=== PATIENT | female | born 1935 | race Caucasian/White ===

== ENCOUNTER 2019-09-18 19:23 | Observation (INO) | payer MEDICARE, BC ==
[2019-09-18] MEDS ORDERED: SODIUM CHLORIDE 0.9% 500 ML 500 ML IV STA (19:43)
[2019-09-18] MEDS ORDERED: ONDANSETRON 4 MG/2 ML VIAL IVP STA (19:43)
[2019-09-18 20:01] LABS: Basophils % (A) 0 %; Eosinophils # (A) 0.1 k/uL (0-0.7); Eosinophils % (A) 1 %; HCT 35.6 % (34.0-46.0); HGB 12.1 gm/dL (11.4-16.0); Lymphocytes # (A) 0.3 k/uL (1.0-4.8); Lymphocytes % (A) 2 %; MCH 32.6 pg (25.0-35.0); MCV 95.7 fL (80.0-100.0); Mean Platelet Volume 6.3; Monocytes # (A) 0.3 k/uL (0-1.0); Monocytes % (A) 2 %; Neutrophils # (A) 13.6 k/uL (1.3-7.7); Neutrophils % (A) 95 %; Platelet Count 171 k/uL (150-450); RBC 3.72 m/uL (3.80-5.40); RDW 12.6 % (11.5-15.5); WBC 14.4 k/uL (3.8-10.6)
[2019-09-18 20:12] LABS: Albumin 3.4 g/dL (3.5-5.0); Calcium 8.6 mg/dL (8.4-10.2); Total Bilirubin 0.9 mg/dL (0.2-1.3); Total Protein 6.1 g/dL (6.3-8.2)
[2019-09-18 20:16] LABS: Potassium 4.2 mmol/L (3.5-5.1)
--- NOTE | 2019-09-18 21:32 | CT ---
EXAMINATION TYPE: CT abdomen pelvis wo con DATE OF EXAM: 09/18/2019 COMPARISON: None HISTORY: diarrhea, abdominal pain and rectal bleeding CT DLP: 410 mGycm Automated exposure control for dose reduction was used. TECHNIQUE: Helical acquisition of images was performed from the lung bases through the pelvis. FINDINGS: Within the limitations of noncontrast CT the following observations are made. LUNG BASES: No acute process. Prominent left and right coronary calcifications are noted. LIVER/GB: No significant abnormality is appreciated. PANCREAS: No significant abnormality is seen. SPLEEN: No significant abnormality is seen. ADRENALS: No significant abnormality is seen. KIDNEYS: No significant abnormality is seen. FREE AIR: No free air is visualized RETROPERITONEAL ADENOPATHY: None visualized REPRODUCTIVE ORGANS: No significant abnormality is seen URINARY BLADDER: No significant abnormality is seen. PELVIC ADENOPATHY: None visualized. OSSEOUS STRUCTURES: No significant abnormality is seen. BOWEL: No significant abnormality is seen. Specifically, no finding to correlate with the patient's diarrhea, pain and rectal bleeding. IMPRESSION: NO ACUTE PROCESS.
--- NOTE | 2019-09-18 22:00 | ED ---
General Adult HPI <Charles Zepeda - Last Filed: 09/18/19 22:39> - General Source: EMS Mode of arrival: EMS Limitations: no limitations <Juhi Coughlin - Last Filed: 09/22/19 15:59> - General Chief complaint: Nausea/Vomiting/Diarrhea Stated complaint: Diarrhea Time Seen by Provider: 09/18/19 19:30 - History of Present Illness Initial comments: The patient is an 84-year-old female past history of C. diff approximate 5 years ago presents emergency room with diarrhea. She states around 1 PM today she began having multiple episodes of diarrhea. States that it was yellow in color and she did notice small amount of blood during her last episode. States she has been having lower abdominal cramping. No fevers or chills. She did have slight nausea without vomiting. Denies any recent antibiotic use or travel. No recent medication changes. Denies a history of GI bleeding. He is on Plavix. States that after several episodes she began having presyncopal sensations. She is having difficulty in regulating. She felt as if she was went to pass out. She then called EMS for transfer. Upon arrival the patient's vital signs are stable. Denies chest pain or shortness of breath. No changes in her bladder habits. There are no other alleviating, precipitating or modifying factors (Juhi Coughlin) - Related Data Home Medications Medication Instructions Recorded Confirmed Aspirin 81 mg PO DAILY 09/05/15 09/18/19 Atorvastatin [Lipitor] 20 mg PO DAILY 09/05/15 09/18/19 Carvedilol [Coreg] 3.125 mg PO BID 09/05/15 09/18/19 Clopidogrel [Plavix] 75 mg PO DAILY 09/05/15 09/18/19 Ezetimibe [Zetia] 10 mg PO DAILY 09/05/15 09/18/19 Gabapentin Unknown Dose 1 tab PO ONCE PRN 09/18/19 09/18/19 Levothyroxine Sodium [Synthroid] 150 mcg PO DAILY 09/18/19 09/18/19 Allergies Allergy/AdvReac Type Severity Reaction Status Date / Time Penicillins Allergy Severe Anaphylaxis Verified 09/18/19 21:51 Iodinated Contrast Media Allergy Anaphylaxis Verified 09/18/19 21:51 Sulfa (Sulfonamide Allergy Anaphylaxis Verified 09/18/19 21:51 Antibiotics) heart cath dye Allergy Anaphylaxis Uncoded 09/18/19 19:31 Review of Systems ROS Other: All systems not noted in ROS Statement are negative. <Charles Zepeda - Last Filed: 09/18/19 22:39> ROS Other: All systems not noted in ROS Statement are negative. <Juhi Coughlin - Last Filed: 09/22/19 15:59> ROS Statement: Those systems with pertinent positive or pertinent negative responses have been documented in the HPI. 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, cardiac stent 2012, x-smoker, cholecystitis, diverticulitis, recent flare August 29, pt on 7 more doses of po cipro History of Any Multi-Drug Resistant Organisms: C-DIFF Date of last positivie culture/infection: 01/23/2015 MDRO Source:: stool Past Surgical History: Cholecystectomy, Heart Catheterization With Stent, Hysterectomy Additional Past Surgical History / Comment(s): surgery for perforated ulcer 10 yrs ago Past Anesthesia/Blood Transfusion Reactions: No Reported Reaction Past Psychological History: No Psychological Hx Reported Smoking Status: Former smoker Past Alcohol Use History: None Reported Past Drug Use History: None Reported - Past Family History Mother Family Medical History: Chest Pain / Angina, Myocardial Infarction ([place]), Thyroid Disorder Father Family Medical History: Cancer (Lung cancer), Thyroid Disorder Brother(s) Family Medical History: Thyroid Disorder Daughter(s) Family Medical History: Cancer (Uterine cancer), Thyroid Disorder Son(s) Family Medical History: No Reported History <Juhi Coughlin - Last Filed: 09/22/19 15:59> General Exam Limitations: no limitations General appearance: alert, in no apparent distress Head exam: Present: atraumatic, normocephalic, normal inspection Eye exam: Present: normal appearance, PERRL, EOMI. Absent: scleral icterus, conjunctival injection, periorbital swelling ENT exam: Present: normal exam, mucous membranes moist Neck exam: Present: normal inspection. Absent: tenderness, meningismus, lymphadenopathy Respiratory exam: Present: normal lung sounds bilaterally. Absent: respiratory distress, wheezes, rales, rhonchi, stridor Cardiovascular Exam: Present: regular rate, normal rhythm, normal heart sounds. Absent: systolic murmur, diastolic murmur, rubs, gallop, clicks GI/Abdominal exam: Present: soft, normal bowel sounds. Absent: distended, tenderness, guarding, rebound, rigid Rectal exam: Present: normal rectal tone. Absent: black stool, bloody stool, mass, tenderness Extremities exam: Present: normal inspection, full ROM, normal capillary refill. Absent: tenderness, pedal edema, joint swelling, calf tenderness Back exam: Present: normal inspection Neurological exam: Present: alert, oriented X3, CN II-XII intact Psychiatric exam: Present: normal affect, normal mood Skin exam: Present: warm, dry, intact, normal color. Absent: rash <Juhi Coughlin - Last Filed: 09/22/19 15:59> Course <Charles Zepeda - Last Filed: 09/18/19 22:39> Vital Signs 09/18/19 09/18/19 19:29 23:03 Temperature 98.7 F 97.6 F Pulse Rate 88 87 Respiratory 18 16 Rate Blood Pressure 104/63 112/61 O2 Sat by Pulse 95 95 Oximetry - Reevaluation(s) Reevaluation #1: 09/18/19 22:39 [address] was asked [address] an order for contact precautions for this patient. (Charles Zepeda) Medical Decision Making - Lab Data Result diagrams: 09/18/19 19:35 09/18/19 19:35 <Charles Zepeda - Last Filed: 09/18/19 22:39> - Lab Data Result diagrams: 09/19/19 08:13 09/19/19 08:13 <Juhi Coughlin - Last Filed: 09/22/19 15:59> - Medical Decision Making Upon arrival the patient was placed in room 25. Thorough history and physical exam was performed. I recommended laboratory studies and a CT the patient's abdomen and pelvis. 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 CBC shows white blood cell count of 14.4. Fecal occult was performed and is positive. No gross blood was seen during my exam. The patient does have 3 episodes of bowel, yellow watery stool. Because of this I did recommend treatment for C. diff. A sample was sent to the lab. The patient was started on the 100 mL of normal saline per hour. She was given a 500 cc bolus. I did start Vanco 250 mg every 6 hours. I talked to Dr. Powell who accepted admission. The patient agreed to the treatment plan and was admitted to the floor (MadysonJuhi Carol) - Lab Data Lab Results 09/18/19 09/18/19 09/18/19 Range/Units 19:35 19:35 19:35 WBC 14.4 H (3.8-10.6) k/uL RBC 3.72 L (3.80-5.40) m/uL Hgb 12.1 (11.4-16.0) gm/dL Hct 35.6 (34.0-46.0) % MCV 95.7 (80.0-100.0) fL MCH 32.6 (25.0-35.0) pg MCHC 34.0 (31.0-37.0) g/dL RDW 12.6 (11.5-15.5) % Plt Count 171 (150-450) k/uL Neutrophils % 95 % Lymphocytes % 2 % Monocytes % 2 % Eosinophils % 1 % Basophils % 0 % Neutrophils # 13.6 H (1.3-7.7) k/uL Lymphocytes # 0.3 L (1.0-4.8) k/uL Monocytes # 0.3 (0-1.0) k/uL Eosinophils # 0.1 (0-0.7) k/uL Basophils # 0.0 (0-0.2) k/uL Sodium 137 (137-145) mmol/L Potassium 4.2 (3.5-5.1) mmol/L Chloride 110 H (98-107) mmol/L Carbon Dioxide 19 L (22-30) mmol/L Anion Gap 8 mmol/L BUN 24 H (7-17) mg/dL Creatinine 0.87 (0.52-1.04) mg/dL Est GFR (CKD-EPI)AfAm 71 (>60 ml/min/1.73 sqM) Est GFR (CKD-EPI)NonAf 62 (>60 ml/min/1.73 sqM) Glucose 117 H (74-99) mg/dL Plasma Lactic Acid Naresh 1.0 (0.7-2.0) mmol/L Calcium 8.6 (8.4-10.2) mg/dL Total Bilirubin 0.9 (0.2-1.3) mg/dL AST 32 (14-36) U/L ALT 24 (9-52) U/L Alkaline Phosphatase 76 (38-126) U/L Total Protein 6.1 L (6.3-8.2) g/dL Albumin 3.4 L (3.5-5.0) g/dL Lipase 49 (23-300) U/L Stool Occult Blood (Negative) 09/18/19 Range/Units 20:22 WBC (3.8-10.6) k/uL RBC (3.80-5.40) m/uL Hgb (11.4-16.0) gm/dL Hct (34.0-46.0) % MCV (80.0-100.0) fL MCH (25.0-35.0) pg MCHC (31.0-37.0) g/dL RDW (11.5-15.5) % Plt Count (150-450) k/uL Neutrophils % % Lymphocytes % % Monocytes % % Eosinophils % % Basophils % % Neutrophils # (1.3-7.7) k/uL Lymphocytes # (1.0-4.8) k/uL Monocytes # (0-1.0) k/uL Eosinophils # (0-0.7) k/uL Basophils # (0-0.2) k/uL Sodium (137-145) mmol/L Potassium (3.5-5.1) mmol/L Chloride (98-107) mmol/L Carbon Dioxide (22-30) mmol/L Anion Gap mmol/L BUN (7-17) mg/dL Creatinine (0.52-1.04) mg/dL Est GFR (CKD-EPI)AfAm (>60 ml/min/1.73 sqM) Est GFR (CKD-EPI)NonAf (>60 ml/min/1.73 sqM) Glucose (74-99) mg/dL Plasma Lactic Acid Naresh (0.7-2.0) mmol/L Calcium (8.4-10.2) mg/dL Total Bilirubin (0.2-1.3) mg/dL AST (14-36) U/L ALT (9-52) U/L Alkaline Phosphatase (38-126) U/L Total Protein (6.3-8.2) g/dL Albumin (3.5-5.0) g/dL Lipase (23-300) U/L Stool Occult Blood Positive H (Negative) Disposition <Charles Zepeda - Last Filed: 09/18/19 22:39> Is patient prescribed a controlled substance at d/c from ED?: No Decision to Admit Reason: Admit from EC Decision Date: 09/18/19 Decision Time: 22:04 <Juhi Coughlin - Last Filed: 09/22/19 15:59> Clinical Impression: Diarrhea, Hx of Clostridium difficile infection, Rectal bleeding Disposition: ADMITTED IP TO THIS HOSP Condition: Stable
[2019-09-18] MEDS ORDERED: ONDANSETRON 4 MG/2 ML VIAL IVP PRN (22:05)
[2019-09-18] MEDS ORDERED: NALOXONE 0.4 MG/ML 1 ML VIAL IV PRN (22:05)
[2019-09-18] MEDS: SODIUM CHLORIDE 0.9% 1,000 ML IV SCH (23:56)
[2019-09-18 23:58] LABS: Appearance,Urine Clear (Clear); Bilirubin,Urine Negative (Negative); Blood,Urine Trace (Negative); Color,Urine Yellow; Glucose,Urine (UA) Negative (Negative); Hyaline Casts,Urine 3 /lpf (0-2); Ketones,Urine Trace (Negative); Leukocyte Esterase,Urine Trace (Negative); Mucus,Urine Occasional /hpf; Nitrite,Urine Negative (Negative); Protein,Urine Trace (Negative); RBC,Urine 1 /hpf (0-5); Specific Gravity,Urine 1.027 (1.001-1.035); Squamous Epithelial Cell,Urine <1 /hpf (0-4); Urobilinogen,Urine <2.0 mg/dL (<2.0)
[2019-09-19] MEDS: CHERRY FLAVOR 60 ML BOTTLE PO SCH ×2 (00:05→05:57)
[2019-09-19] MEDS: VANCOMYCIN ORAL SOLUTION 250 MG/5 ML BOTTLE PO SCH ×2 (00:06→05:57)
[2019-09-19] MEDS ORDERED: LEVOTHYROXINE 75 MCG TAB PO SCH (06:30)
[2019-09-19 07:09] VITALS: PULSE 65; RESP 16; TEMP 98.1
[2019-09-19] MEDS ORDERED: CARVEDILOL 3.125 MG TAB PO SCH (07:30)
[2019-09-19 08:31] LABS: Basophils % (A) 0 %; Eosinophils % (A) 0 %; HCT 32.6 % (34.0-46.0); Lymphocytes # (A) 0.7 k/uL (1.0-4.8); Lymphocytes % (A) 8 %; MCH 32.2 pg (25.0-35.0); MCHC 33.7 g/dL (31.0-37.0); MCV 95.6 fL (80.0-100.0); Monocytes # (A) 0.3 k/uL (0-1.0); Monocytes % (A) 4 %; Neutrophils # (A) 7.2 k/uL (1.3-7.7); Neutrophils % (A) 87 %; Platelet Count 195 k/uL (150-450); RBC 3.41 m/uL (3.80-5.40); RDW 12.8 % (11.5-15.5); WBC 8.3 k/uL (3.8-10.6)
[2019-09-19 08:47] LABS: Calcium 8.2 mg/dL (8.4-10.2); Potassium 3.8 mmol/L (3.5-5.1)
[2019-09-19] MEDS ORDERED: ASPIRIN 81 MG PO SCH (09:00)
[2019-09-19] MEDS ORDERED: ATORVASTATIN 20 MG TAB PO SCH (09:00)
[2019-09-19] MEDS ORDERED: EZETIMIBE 10 MG TAB PO SCH (09:00)
[2019-09-19] MEDS ORDERED: CLOPIDOGREL 75 MG TAB PO SCH (09:00)
[2019-09-19] MEDS: SODIUM CHLORIDE 0.9% 1,000 ML IV SCH (09:42)
[2019-09-19 11:02] VITALS: BP 92/50
--- NOTE | 2019-09-19 11:15 | P.HPIM ---
History of Present Illness H&P Date: 09/19/19 Chief Complaint: Abdominal pain and diarrhea This is 84 years old female with past medical history significant for diverticulitis and C. diff colitis presents to the emergency department with new onset diarrhea. Patient stated yesterday she started having loose bowel moveme nt and had at least 4 bowel movements where it was semisolid at the beginning and then turned to be watery noticed to have some blood in it became more concerned when she saw the blood and presented to the emergency department as she was complaining of abdominal cramps feeling nauseous but no vomiting and patient continued to tolerate her diet without difficulties in the emergency department vital signs were stable abdominal CAT scan showed normal finding stool was sent to rule out C. diff and patient was placed in observation. Patient currently had resolution of her diarrhea stated that her abdominal pain is gone and has good appetite where she tolerated her breakfast 100% this morning. Patient denied fever, chills, chest pain, shortness breath and stated that she has been in her regular state of health since she completed her course of antibiotics for acute diverticulitis that was completed at the beginning of this month. Nursing staff reported no further nausea or abdominal pain patient had no bowel movement since she admitted to the floor and seems to be back to her baseline area didn't patient denying tobacco alcohol or drug abuse Review of Systems All 14 systems reviewed and negative except as above 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, cardiac stent 2012, x-smoker, cholecystitis, diverticulitis, recent flare August 29, pt on 7 more doses of po cipro History of Any Multi-Drug Resistant Organisms: C-DIFF Date of last positivie culture/infection: 01/23/2015 MDRO Source:: stool Past Surgical History: Cholecystectomy, Heart Catheterization With Stent, Hysterectomy Additional Past Surgical History / Comment(s): surgery for perforated ulcer 10 yrs ago Past Anesthesia/Blood Transfusion Reactions: No Reported Reaction Date of Last Stent Placement:: 2012 Past Psychological History: No Psychological Hx Reported Smoking Status: Former smoker Past Alcohol Use History: None Reported Past Drug Use History: None Reported - Past Family History Mother Family Medical History: Chest Pain / Angina, Myocardial Infarction ([place]), Thyroid Disorder Father Family Medical History: Cancer, Thyroid Disorder Brother(s) Family Medical History: Thyroid Disorder Daughter(s) Family Medical History: Cancer, Thyroid Disorder Son(s) Family Medical History: No Reported History Medications and Allergies Home Medications Medication Instructions Recorded Confirmed Type Aspirin 81 mg PO DAILY 09/05/15 09/18/19 History Atorvastatin [Lipitor] 20 mg PO DAILY 09/05/15 09/18/19 History Carvedilol [Coreg] 3.125 mg PO BID 09/05/15 09/18/19 History Clopidogrel [Plavix] 75 mg PO DAILY 09/05/15 09/18/19 History Ezetimibe [Zetia] 10 mg PO DAILY 09/05/15 09/18/19 History Gabapentin Unknown Dose 1 tab PO ONCE PRN 09/18/19 09/18/19 History Levothyroxine Sodium [Synthroid] 150 mcg PO DAILY 09/18/19 09/18/19 History Allergies Allergy/AdvReac Type Severity Reaction Status Date / Time Penicillins Allergy Severe Anaphylaxis Verified 09/18/19 21:51 Iodinated Contrast Media Allergy Anaphylaxis Verified 09/18/19 21:51 Sulfa (Sulfonamide Allergy Anaphylaxis Verified 09/18/19 21:51 Antibiotics) heart cath dye Allergy Anaphylaxis Uncoded 09/18/19 19:31 Physical Exam Vitals: Vital Signs Temp Pulse Pulse Resp BP BP Pulse Ox 09/19/19 11:01 92/50 09/19/19 07:00 98.1 F 65 16 86/42 94 L 09/18/19 23:35 98.0 F 96 18 117/79 96 09/18/19 23:03 97.6 F 87 16 112/61 95 09/18/19 19:29 98.7 F 88 18 104/63 95 Intake and Output 09/18/19 09/19/19 09/19/19 22:59 06:59 14:59 Intake Total 1300 Balance 1300 Intake: Intake, IV Titration 1300 Amount Sodium Chloride 0.9% 1, 800 000 ml @ 100 mls/hr IV . Q10H KATARINA Rx#:[id number] Sodium Chloride 0.9% 500 500 ml 500 ml @ 999 mls/hr IV .Q31M STA Rx#:[id number] Other: Weight 60.328 kg Gen.: in stated age, no acute distress Heart: Normal S1-S2 Lungs: Clear to auscultation bilaterally Abdomen: Soft, no tenderness, positive bowel sounds in all 4 quadrant no guarding or rebound Skin: No new rash Psych: Alert and oriented 3 Neuro: No focal deficit Results CBC & Chem 7: 09/19/19 08:13 09/19/19 08:13 Labs: Abnormal Lab Results - Last 24 Hours (Table) 09/18/19 09/18/19 09/18/19 Range/Units 19:35 19:35 20:22 WBC 14.4 H (3.8-10.6) k/uL RBC 3.72 L (3.80-5.40) m/uL Hgb (11.4-16.0) gm/dL Hct (34.0-46.0) % Neutrophils # 13.6 H (1.3-7.7) k/uL Lymphocytes # 0.3 L (1.0-4.8) k/uL Chloride 110 H (98-107) mmol/L Carbon Dioxide 19 L (22-30) mmol/L BUN 24 H (7-17) mg/dL Glucose 117 H (74-99) mg/dL Calcium (8.4-10.2) mg/dL Total Protein 6.1 L (6.3-8.2) g/dL Albumin 3.4 L (3.5-5.0) g/dL Urine Protein (Negative) Urine Ketones (Negative) Urine Blood (Negative) Ur Leukocyte Esterase (Negative) Hyaline Casts (0-2) /lpf Urine Mucus (None) /hpf Stool Occult Blood Positive H (Negative) 09/18/19 09/19/19 09/19/19 Range/Units 23:35 08:13 08:13 WBC (3.8-10.6) k/uL RBC 3.41 L (3.80-5.40) m/uL Hgb 11.0 L (11.4-16.0) gm/dL Hct 32.6 L (34.0-46.0) % Neutrophils # (1.3-7.7) k/uL Lymphocytes # 0.7 L (1.0-4.8) k/uL Chloride 113 H (98-107) mmol/L Carbon Dioxide (22-30) mmol/L BUN 19 H (7-17) mg/dL Glucose (74-99) mg/dL Calcium 8.2 L (8.4-10.2) mg/dL Total Protein (6.3-8.2) g/dL Albumin (3.5-5.0) g/dL Urine Protein Trace H (Negative) Urine Ketones Trace H (Negative) Urine Blood Trace H (Negative) Ur Leukocyte Esterase Trace H (Negative) Hyaline Casts 3 H (0-2) /lpf Urine Mucus Occasional H (None) /hpf Stool Occult Blood (Negative) Thrombosis Risk Factor Assmnt - Choose All That Apply Any of the Below Risk Factors Present?: Yes Other Risk Factors: Yes Each Risk Factor Represents 3 Points: Age 75 years or older Thrombosis Risk Factor Assessment Total Risk Factor Score: 3 Thrombosis Risk Factor Assessment Level: Moderate Risk Assessment and Plan Assessment: 1. Diarrhea, nausea that could represent viral gastroenteritis, resolved completely. 2. Leukocytosis, resolved and back to baseline. 3. Positive blood in stool with history of GI bleed. Hemoglobin is stable. 4. Hypertension. Controlled. 5. Coronary artery disease. 6. Hypertension. 7. Hyperlipidemia. 8. Debility and deconditioning. 9. Hyperlipidemia. 10. Recent acute diverticulitis. 11. GERD Had long discussion with patient and nursing staff that patient had resolution of her diarrhea nausea and tolerating diet currently her white blood count is back to normal and etiology of her abdominal pain nausea and vomiting along with diarrhea likely represent gastroenteritis. Patient is off fluid tolerating diet and ambulating at baseline and ready for discharge would have patient's follow-up with her primary care physician outpatient to repeat CBC next week and consider further testing for GI bleed in the future as patient hemoglobin is stable and vital signs to be stable and patient is asymptomatic. Patient advised to hold her blood pressure medication until she seen by her primary care physician next week
--- NOTE | 2019-09-19 11:17 | P.DS ---
Providers Date of admission: 09/18/19 22:07 Attending physician: Raza Powell Primary care physician: [facility] Course: 84 years old female presented to the hospital with abdominal pain and nausea along with diarrhea that all resolved in the hospital along with leukocytosis that resolved on the second day patient was tolerating diet ambulating in the room and back to her baseline condition patient felt stable from the medical standpoint hemoglobin was stable vital signs were stable and patient was a symptomatically asked to follow-up with her primary care physician regarding consideration of EGD and colonoscopy in the future for positive blood in stool which could be related to diverticulosis versus the gastroenteritis that patient is dealing with right now but for requires no further testing in the hospital at this point given the stability and the patient's symptoms and numbers patient felt stable from the medical standpoint was discharged home to hold her blood pressure medication until she is evaluated by her primary care physician in the next 3 days Patient Condition at Discharge: Stable Plan - Discharge Summary New Discharge Prescriptions: No Action Aspirin 81 mg PO DAILY Carvedilol [Coreg] 3.125 mg PO BID Atorvastatin [Lipitor] 20 mg PO DAILY Ezetimibe [Zetia] 10 mg PO DAILY Clopidogrel [Plavix] 75 mg PO DAILY Levothyroxine Sodium [Synthroid] 150 mcg PO DAILY Gabapentin Unknown Dose 1 tab PO ONCE PRN PRN Reason: Pain Discharge Medication List Aspirin 81 mg PO DAILY 09/05/15 [History] Atorvastatin [Lipitor] 20 mg PO DAILY 09/05/15 [History] Carvedilol [Coreg] 3.125 mg PO BID 09/05/15 [History] Clopidogrel [Plavix] 75 mg PO DAILY 09/05/15 [History] Ezetimibe [Zetia] 10 mg PO DAILY 09/05/15 [History] Gabapentin Unknown Dose 1 tab PO ONCE PRN 09/18/19 [History] Levothyroxine Sodium [Synthroid] 150 mcg PO DAILY 09/18/19 [History] Follow up Appointment(s)/Referral(s): Abdiel Francis MD [Primary Care Provider] - 1-2 days Patient Instructions/Handouts: Acute Diarrhea (ED) Activity/Diet/Wound Care/Special Instructions: STAY HYDRATED. REGULAR DIET. ACTIVITY TOLERATED. DO NOT TAKE CARVEDILOL (COREG) UNTIL SEEN BY DR. FRANCIS
== END 2019-09-19 13:03 | disposition home or self-care (01) ==
LOC: EC 19:23 → 4MS4W 22:07
PROVIDERS: ADMIT Internal Medicine; ATTEND Internal Medicine
DX: R19.7 Diarrhea, unspecified (principal); R10.30 Lower abdominal pain, unspecified; R11.0 Nausea; D72.829 Elevated white blood cell count, unspecified; K62.5 Hemorrhage of anus and rectum; K21.9 Gastro-esophageal reflux disease without esophagitis; K57.90 Diverticulosis of intestine, part unspecified, without perforation or abscess without bleeding; I25.10 Atherosclerotic heart disease of native coronary artery without angina pectoris; I10 Essential (primary) hypertension; E78.5 Hyperlipidemia, unspecified; M19.90 Unspecified osteoarthritis, unspecified site; R55 Syncope and collapse; Z16.24 Resistance to multiple antibiotics; E07.9 Disorder of thyroid, unspecified; R53.81 Other malaise; Z79.82 Long term (current) use of aspirin; Z79.02 Long term (current) use of antithrombotics/antiplatelets; Z79.899 Other long term (current) drug therapy; Z79.890 Hormone replacement therapy; Z88.0 Allergy status to penicillin; Z88.2 Allergy status to sulfonamides; Z91.041 Radiographic dye allergy status; Z95.5 Presence of coronary angioplasty implant and graft; Z87.892 Personal history of anaphylaxis; Z90.49 Acquired absence of other specified parts of digestive tract; Z90.710 Acquired absence of both cervix and uterus; Z86.718 Personal history of other venous thrombosis and embolism; Z87.19 Personal history of other diseases of the digestive system; Z87.01 Personal history of pneumonia (recurrent); Z87.891 Personal history of nicotine dependence; Z82.49 Family history of ischemic heart disease and other diseases of the circulatory system; Z80.1 Family history of malignant neoplasm of trachea, bronchus and lung; Z83.49 Family history of other endocrine, nutritional and metabolic diseases; Z80.49 Family history of malignant neoplasm of other genital organs
CPT/HCPCS: 96374; 96361; 99285; 36415; 80053; 80048; 83605; 83690; 85025 ×2; 82272; 81001; 87324; 83630; 74176; G0378; J2405

== ENCOUNTER 2019-11-26 11:18 | Emergency (ER) | payer MEDICARE, BC ==
[2019-11-26 11:54] LABS: Appearance,Urine Cloudy (Clear); Bacteria,Urine Rare /hpf; Bilirubin,Urine Negative (Negative); Blood,Urine Trace (Negative); Color,Urine Yellow; Glucose,Urine (UA) Negative (Negative); Ketones,Urine Negative (Negative); Leukocyte Esterase,Urine Large (Negative); Mucus,Urine Rare /hpf; Nitrite,Urine Negative (Negative); PH, Urine 5.5 (5.0-8.0); Protein,Urine Negative (Negative); RBC,Urine 1 /hpf (0-5); Specific Gravity,Urine 1.008 (1.001-1.035); Squamous Epithelial Cell,Urine <1 /hpf (0-4); Urobilinogen,Urine <2.0 mg/dL (<2.0); WBC,Urine >182 /hpf (0-5)
[2019-11-26] MEDS ORDERED: SODIUM CHLORIDE 0.9% 500 ML 500 ML IV ONE (12:07)
[2019-11-26] MEDS ORDERED: CIPROFLOXACIN HCL 500 MG TAB PO STA (12:45)
[2019-11-26 12:55] LABS: Albumin 3.4 g/dL (3.5-5.0); Basophils % (A) 0 %; Eosinophils # (A) 0.1 k/uL (0-0.7); Eosinophils % (A) 2 %; HCT 34.3 % (34.0-46.0); HGB 11.5 gm/dL (11.4-16.0); Lymphocytes # (A) 1.5 k/uL (1.0-4.8); Lymphocytes % (A) 25 %; MCH 30.7 pg (25.0-35.0); MCHC 33.6 g/dL (31.0-37.0); MCV 91.3 fL (80.0-100.0); Mean Platelet Volume 7.5; Monocytes # (A) 0.4 k/uL (0-1.0); Monocytes % (A) 6 %; Neutrophils # (A) 3.8 k/uL (1.3-7.7); Neutrophils % (A) 64 %; Platelet Count 241 k/uL (150-450); RBC 3.76 m/uL (3.80-5.40); RDW 12.7 % (11.5-15.5); Total Bilirubin 0.5 mg/dL (0.2-1.3); Total Protein 5.8 g/dL (6.3-8.2)
--- NOTE | 2019-11-26 13:37 | ED ---
General Adult HPI <Chris Montenegro - Last Filed: 11/26/19 14:02> - General Source: patient, RN notes reviewed, old records reviewed Mode of arrival: wheelchair Limitations: no limitations <Issa Bruce - Last Filed: 11/26/19 15:00> - General Chief complaint: Urogenital Stated complaint: UTI Time Seen by Provider: 11/26/19 11:25 - History of Present Illness Initial comments: 84-year-old female patient presents to emergency department with chief complaint of 3 days dysuria, frequency or urgency. Denies any fevers, denies any back or flank pain. As chest pain or shortness of breath.. Denies any other complaints at this time. Systemic: Pt denies fatigue, fever/chills, rash. Pt denies weakness, night sweats, weight loss. Neuro: Pt denies headache, visual disturbances, syncope or pre-syncope. HEENT: Pt denies ocular discharge or irritation, otalgia, rhinorrhea, pharyngitis or notable lymphadenopathy. Cardiopulmonary: Pt denies chest pain, SOB, heart palpitations, dyspnea on exertion. Abdominal/GI: Pt denies abdominal pain, n/v/d. : Denies new onset urinary or bowel incontinence. MSK: Pt denies myalgia, loss of strength or function in extremities. Neuro: Pt denies new onset weakness, paresthesias. (Issa Bruce) - Related Data Home Medications Medication Instructions Recorded Confirmed Aspirin 81 mg PO DAILY 09/05/15 09/18/19 Atorvastatin [Lipitor] 20 mg PO DAILY 09/05/15 09/18/19 Carvedilol [Coreg] 3.125 mg PO BID 09/05/15 09/18/19 Clopidogrel [Plavix] 75 mg PO DAILY 09/05/15 09/18/19 Ezetimibe [Zetia] 10 mg PO DAILY 09/05/15 09/18/19 Gabapentin Unknown Dose 1 tab PO ONCE PRN 09/18/19 09/18/19 Levothyroxine Sodium [Synthroid] 150 mcg PO DAILY 09/18/19 09/18/19 Previous Rx's Medication Instructions Recorded Ciprofloxacin HCl 500 mg PO BID 7 Days #14 tab 11/26/19 Allergies Allergy/AdvReac Type Severity Reaction Status Date / Time Penicillins Allergy Severe Anaphylaxis Verified 09/18/19 21:51 Iodinated Contrast Media Allergy Anaphylaxis Verified 09/18/19 21:51 Sulfa (Sulfonamide Allergy Anaphylaxis Verified 09/18/19 21:51 Antibiotics) heart cath dye Allergy Anaphylaxis Uncoded 09/18/19 19:31 Review of Systems ROS Other: All systems not noted in ROS Statement are negative. <Chris Montenegro - Last Filed: 11/26/19 14:02> ROS Other: All systems not noted in ROS Statement are negative. <Issa Bruce - Last Filed: 11/26/19 15:00> ROS Statement: Those systems with pertinent positive or pertinent negative responses have been documented in the HPI. 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, cardiac stent 2012, x-smoker, cholecystitis, diverticulitis, recent flare August 29, pt on 7 more doses of po cipro History of Any Multi-Drug Resistant Organisms: C-DIFF Date of last positivie culture/infection: 01/23/2015 MDRO Source:: stool Past Surgical History: Cholecystectomy, Heart Catheterization With Stent, Hysterectomy Additional Past Surgical History / Comment(s): surgery for perforated ulcer 10 yrs ago Past Anesthesia/Blood Transfusion Reactions: No Reported Reaction Date of Last Stent Placement:: 2012 Past Psychological History: No Psychological Hx Reported Smoking Status: Former smoker Past Alcohol Use History: None Reported Past Drug Use History: None Reported - Past Family History Mother Family Medical History: Chest Pain / Angina, Myocardial Infarction ([place]), Thyroid Disorder Father Family Medical History: Cancer (Lung cancer), Thyroid Disorder Brother(s) Family Medical History: Thyroid Disorder Daughter(s) Family Medical History: Cancer (Uterine cancer), Thyroid Disorder Son(s) Family Medical History: No Reported History <Issa Bruce - Last Filed: 11/26/19 15:00> General Exam Limitations: no limitations <Issa Bruce - Last Filed: 11/26/19 15:00> - General Exam Comments Initial Comments: Constitutional: NAD, AOX3, Pt has pleasant affect. HEENT: NC/AT, trachea midline, neck supple, no lymphadenopathy. Posterior pha rynx non erythematous, without exudates. External ears appear normal, without discharge. Mucous membranes moist. Eyes PERRLA, EOM intact. There is no scleral icterus. No pallor noted. Cardiopulmonary: RRR, no murmurs, rubs or gallops, no JVD noted. Lungs CTAB in anterior and posterior preciado. No peripheral edema. Abdominal exam: Abdomen soft and non-distended. Abdomen non-tender to palpation in all 4 quadrants. Bowel sounds active in LLQ. No hepatosplenomegaly. No ecchymosis. CVA tenderness negative bilaterally. Neuro: CN II-XII grossly intact. No nuchal rigidity. No raccon eyes, no parra s ign, no hemotympanum. No cervical spinal tenderness. MSK: No posterior calf tenderness bilaterally, homans sign negative bilaterally. Posterior tibialis and radial pulse +2 bilaterally. Sensation intact in upper and lower extremities. Full active ROM in upper and lower extremities, 5/5 stregnth. (Issa Bruce) Course <Chris Montenegro - Last Filed: 11/26/19 14:02> Vital Signs 11/26/19 11/26/19 11/26/19 11:20 12:00 13:55 Temperature 98.0 F 97.9 F 98.1 F Pulse Rate 69 63 68 Respiratory 19 15 18 Rate Blood Pressure 117/79 110/59 109/56 O2 Sat by Pulse 97 96 98 Oximetry - Reevaluation(s) Reevaluation #1: 11/26/19 14:02 PA supervision: I proceeded [id number] evaluation the patient did present with complaints and testing consistent with urinary tract infection. Patient is wanting to be discharged she is in agreement and also her family is with oral medication. She has no other issues or complaints at this time. I do agree with the assessment and plan. She denies any abdominal pain at this time. (Chris Montenegro) Medical Decision Making - Lab Data Result diagrams: 11/26/19 12:27 11/26/19 12:27 <Chris Montenegro - Last Filed: 11/26/19 14:02> - Lab Data Result diagrams: 11/26/19 12:27 11/26/19 12:27 <sIsa Bruce - Last Filed: 11/26/19 15:00> - Medical Decision Making 84-year-old female patient presents to ED for chief complaint of dysuria frequency urgency last 3 days. Patient will signs are stable, afebrile. Physical exam densely acute pathology. No CVA tenderness. CBC CMP Laboratory investigations overall unimpressive. UA consistent with urinary tract infection. Patient was discharged palpation fluoroquinolone due to ALLERGIES to penicillins. Patient will close outpatient follow-up with primary care provider will return to ER physician worsen. Case discussed the patient seen by Dr. Montenegro. (Issa Bruce) - Lab Data Lab Results 11/26/19 11/26/19 11/26/19 Range/Units 11:30 12:27 12:27 WBC 6.0 (3.8-10.6) k/uL RBC 3.76 L (3.80-5.40) m/uL Hgb 11.5 (11.4-16.0) gm/dL Hct 34.3 (34.0-46.0) % MCV 91.3 (80.0-100.0) fL MCH 30.7 (25.0-35.0) pg MCHC 33.6 (31.0-37.0) g/dL RDW 12.7 (11.5-15.5) % Plt Count 241 (150-450) k/uL Neutrophils % 64 % Lymphocytes % 25 % Monocytes % 6 % Eosinophils % 2 % Basophils % 0 % Neutrophils # 3.8 (1.3-7.7) k/uL Lymphocytes # 1.5 (1.0-4.8) k/uL Monocytes # 0.4 (0-1.0) k/uL Eosinophils # 0.1 (0-0.7) k/uL Basophils # 0.0 (0-0.2) k/uL Sodium 140 (137-145) mmol/L Potassium 4.0 (3.5-5.1) mmol/L Chloride 108 H (98-107) mmol/L Carbon Dioxide 27 (22-30) mmol/L Anion Gap 5 mmol/L BUN 19 H (7-17) mg/dL Creatinine 0.83 (0.52-1.04) mg/dL Est GFR (CKD-EPI)AfAm 76 (>60 ml/min/1.73 sqM) Est GFR (CKD-EPI)NonAf 66 (>60 ml/min/1.73 sqM) Glucose 87 (74-99) mg/dL Plasma Lactic Acid Naresh (0.7-2.0) mmol/L Calcium 9.0 (8.4-10.2) mg/dL Total Bilirubin 0.5 (0.2-1.3) mg/dL AST 20 (14-36) U/L ALT 9 (4-34) U/L Alkaline Phosphatase 82 (38-126) U/L Total Protein 5.8 L (6.3-8.2) g/dL Albumin 3.4 L (3.5-5.0) g/dL Urine Color Yellow Urine Appearance Cloudy H (Clear) Urine pH 5.5 (5.0-8.0) Ur Specific [place] 1.008 (1.001-1.035) Urine Protein Negative (Negative) Urine Glucose (UA) Negative (Negative) Urine Ketones Negative (Negative) Urine Blood Trace H (Negative) Urine Nitrite Negative (Negative) Urine Bilirubin Negative (Negative) Urine Urobilinogen <2.0 (<2.0) mg/dL Ur Leukocyte Esterase Large H (Negative) Urine RBC 1 (0-5) /hpf Urine WBC >182 H (0-5) /hpf Urine WBC Clumps Few H (None) /hpf Ur Squamous Epith Cells <1 (0-4) /hpf Urine Bacteria Rare H (None) /hpf Urine Mucus Rare H (None) /hpf 11/26/19 Range/Units 12:27 WBC (3.8-10.6) k/uL RBC (3.80-5.40) m/uL Hgb (11.4-16.0) gm/dL Hct (34.0-46.0) % MCV (80.0-100.0) fL MCH (25.0-35.0) pg MCHC (31.0-37.0) g/dL RDW (11.5-15.5) % Plt Count (150-450) k/uL Neutrophils % % Lymphocytes % % Monocytes % % Eosinophils % % Basophils % % Neutrophils # (1.3-7.7) k/uL Lymphocytes # (1.0-4.8) k/uL Monocytes # (0-1.0) k/uL Eosinophils # (0-0.7) k/uL Basophils # (0-0.2) k/uL Sodium (137-145) mmol/L Potassium (3.5-5.1) mmol/L Chloride (98-107) mmol/L Carbon Dioxide (22-30) mmol/L Anion Gap mmol/L BUN (7-17) mg/dL Creatinine (0.52-1.04) mg/dL Est GFR (CKD-EPI)AfAm (>60 ml/min/1.73 sqM) Est GFR (CKD-EPI)NonAf (>60 ml/min/1.73 sqM) Glucose (74-99) mg/dL Plasma Lactic Acid Naresh 0.7 (0.7-2.0) mmol/L Calcium (8.4-10.2) mg/dL Total Bilirubin (0.2-1.3) mg/dL AST (14-36) U/L ALT (4-34) U/L Alkaline Phosphatase (38-126) U/L Total Protein (6.3-8.2) g/dL Albumin (3.5-5.0) g/dL Urine Color Urine Appearance (Clear) Urine pH (5.0-8.0) Ur Specific [place] (1.001-1.035) Urine Protein (Negative) Urine Glucose (UA) (Negative) Urine Ketones (Negative) Urine Blood (Negative) Urine Nitrite (Negative) Urine Bilirubin (Negative) Urine Urobilinogen (<2.0) mg/dL Ur Leukocyte Esterase (Negative) Urine RBC (0-5) /hpf Urine WBC (0-5) /hpf Urine WBC Clumps (None) /hpf Ur Squamous Epith Cells (0-4) /hpf Urine Bacteria (None) /hpf Urine Mucus (None) /hpf Disposition <Chris Montenegro - Last Filed: 11/26/19 14:02> Is patient prescribed a controlled substance at d/c from ED?: No <Issa Bruce - Last Filed: 11/26/19 15:00> Clinical Impression: UTI (urinary tract infection) Disposition: HOME SELF-CARE Condition: Stable Instructions (If sedation given, give patient instructions): Urinary Tract Infection in Women (ED) Additional Instructions: Take antibiotics as directed. Follow-up with primary care provider tomorrow. Return to ER if condition worsens in any way. Prescriptions: Ciprofloxacin HCl 500 mg PO BID 7 Days #14 tab Referrals: Abdiel Francis MD [Primary Care Provider] - 1-2 days
[2019-11-26 14:06] VITALS: BP 109/56; PULSE 68; RESP 18; TEMP 98.1
== END 2019-11-26 13:55 | disposition home or self-care (01) ==
LOC: EC 11:18
DX: N39.0 Urinary tract infection, site not specified (principal); I25.10 Atherosclerotic heart disease of native coronary artery without angina pectoris; E78.5 Hyperlipidemia, unspecified; I10 Essential (primary) hypertension; M19.90 Unspecified osteoarthritis, unspecified site; E07.9 Disorder of thyroid, unspecified; Z87.891 Personal history of nicotine dependence; Z88.0 Allergy status to penicillin; Z88.2 Allergy status to sulfonamides; Z91.041 Radiographic dye allergy status; Z79.02 Long term (current) use of antithrombotics/antiplatelets; Z79.82 Long term (current) use of aspirin; Z79.890 Hormone replacement therapy; Z79.899 Other long term (current) drug therapy; Z86.718 Personal history of other venous thrombosis and embolism; Z95.5 Presence of coronary angioplasty implant and graft
CPT/HCPCS: 36415; 80053; 81001; 83605; 85025; 87077; 87086; 87186; 99284

== ENCOUNTER 2020-09-26 10:50 | Emergency (ER) | payer MEDICARE, BC ==
[2020-09-26 10:59] VITALS: RESP 18; TEMP 98.4
[2020-09-26] MEDS ORDERED: SODIUM CHLORIDE 0.9% 1,000 ML IV STA (11:05)
--- NOTE | 2020-09-26 11:07 | ED ---
Weakness HPI - General Chief complaint: Weakness Stated complaint: Weakness Time Seen by Provider: 09/26/20 10:56 Source: patient, EMS, RN notes reviewed Mode of arrival: EMS Limitations: no limitations - History of Present Illness Initial comments: This is an 85-year-old female presents emergency Department chief complaint of generalized weakness. Patient states that she's been increasingly feeling weak over last 10 days. Patient states that she had multiple family members POSITIVE that live together at home with covid. Patient states that she did have a test 10 days ago but was negative for told most likely had Covid. Patient states then last few days she is so weak that she cannot get up and walk short distances she states it just feels like she's been a pass out no chest pain or shortness breath she states during this time she did have some shortness of breath with her cough cold fever headache bodyaches. Patient states she talked to her PCP on the phone today Dr. peralta recommended to come emergency department. - Related Data Home Medications Medication Instructions Recorded Confirmed Aspirin 81 mg PO HS 09/05/15 09/26/20 Atorvastatin [Lipitor] 20 mg PO DAILY 09/05/15 09/26/20 Clopidogrel [Plavix] 75 mg PO HS 09/05/15 09/26/20 Ezetimibe [Zetia] 10 mg PO DAILY 09/05/15 09/26/20 carvediloL [Coreg] 3.125 mg PO BID 09/05/15 09/26/20 Levothyroxine Sodium [Synthroid] 125 mcg PO DAILY 09/26/20 09/26/20 Omeprazole [PriLOSEC] 20 mg PO DAILY 09/26/20 09/26/20 Allergies Allergy/AdvReac Type Severity Reaction Status Date / Time Penicillins Allergy Severe Anaphylaxis Verified 09/26/20 12:32 Iodinated Contrast Media Allergy Anaphylaxis Verified 09/26/20 12:32 Sulfa (Sulfonamide Allergy Anaphylaxis Verified 09/26/20 12:32 Antibiotics) heart cath dye Allergy Anaphylaxis Uncoded 09/26/20 12:32 Review of Systems ROS Statement: Those systems with pertinent positive or pertinent negative responses have been documented in the HPI. ROS Other: All systems not noted in ROS Statement are negative. 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, cardiac stent 2012, x-smoker, cholecystitis, diverticulitis, recent flare August 29, pt on 7 more doses of po cipro History of Any Multi-Drug Resistant Organisms: ESBL Date of last positivie culture/infection: 11/26/19 E.coli ESBL MDRO Source:: Urine Past Surgical History: Cholecystectomy, Heart Catheterization With Stent, Hysterectomy Additional Past Surgical History / Comment(s): surgery for perforated ulcer 10 yrs ago Past Anesthesia/Blood Transfusion Reactions: No Reported Reaction Date of Last Stent Placement:: 2012 Past Psychological History: No Psychological Hx Reported Smoking Status: Former smoker Past Alcohol Use History: None Reported Past Drug Use History: None Reported - Past Family History Mother Family Medical History: Chest Pain / Angina, Myocardial Infarction ([place]), Thyroid Disorder Father Family Medical History: Cancer (Lung cancer), Thyroid Disorder Brother(s) Family Medical History: Thyroid Disorder Daughter(s) Family Medical History: Cancer (Uterine cancer), Thyroid Disorder Son(s) Family Medical History: No Reported History General Exam Limitations: no limitations General appearance: alert, in no apparent distress Head exam: Present: atraumatic, normocephalic, normal inspection Eye exam: Present: normal appearance, PERRL, EOMI. Absent: scleral icterus, conjunctival injection, periorbital swelling ENT exam: Present: normal exam, normal oropharynx, mucous membranes moist Neck exam: Present: normal inspection, full ROM. Absent: tenderness, meningismus, lymphadenopathy Respiratory exam: Present: normal lung sounds bilaterally. Absent: respiratory distress, wheezes, rales, rhonchi, stridor Cardiovascular Exam: Present: normal rhythm, bradycardia, normal heart sounds. Absent: systolic murmur, diastolic murmur, rubs, gallop, clicks GI/Abdominal exam: Present: soft, normal bowel sounds. Absent: distended, tenderness, guarding, rebound, rigid Neurological exam: Present: alert, oriented X3 Skin exam: Present: warm, dry, intact, normal color. Absent: rash Course Vital Signs 09/26/20 09/26/20 09/26/20 10:52 11:34 13:31 Temperature 98.4 F Pulse Rate 50 L 53 L 57 L Respiratory 18 18 18 Rate Blood Pressure 120/74 103/92 115/76 O2 Sat by Pulse 96 95 100 Oximetry Medical Decision Making - Medical Decision Making 85-year-old presented for generalized weakness. Patient did have mild dehydration was hydrated, able to intubate the [facility] emergency from with no difficulty. Patient was offered admission she states that she feels comfortable discharge she understands that she needs to eat and drink and return for any worsening changing of symptoms. - Lab Data Result diagrams: 09/26/20 11:40 09/26/20 11:40 Lab Results 09/26/20 09/26/20 09/26/20 Range/Units 11:40 11:40 11:40 WBC 2.8 L (3.8-10.6) k/uL RBC 4.19 (3.80-5.40) m/uL Hgb 12.7 (11.4-16.0) gm/dL Hct 39.3 (34.0-46.0) % MCV 93.7 (80.0-100.0) fL MCH 30.4 (25.0-35.0) pg MCHC 32.4 (31.0-37.0) g/dL RDW 12.8 (11.5-15.5) % Plt Count 122 L (150-450) k/uL Neutrophils % 57 % Lymphocytes % 33 % Monocytes % 7 % Eosinophils % 0 % Basophils % 0 % Neutrophils # 1.6 (1.3-7.7) k/uL Lymphocytes # 0.9 L (1.0-4.8) k/uL Monocytes # 0.2 (0-1.0) k/uL Eosinophils # 0.0 (0-0.7) k/uL Basophils # 0.0 (0-0.2) k/uL PT 9.4 (9.0-12.0) sec INR 0.9 (<1.2) APTT 20.2 L (22.0-30.0) sec Sodium (137-145) mmol/L Potassium (3.5-5.1) mmol/L Chloride (98-107) mmol/L Carbon Dioxide (22-30) mmol/L Anion Gap mmol/L BUN (7-17) mg/dL Creatinine (0.52-1.04) mg/dL Est GFR (CKD-EPI)AfAm (>60 ml/min/1.73 sqM) Est GFR (CKD-EPI)NonAf (>60 ml/min/1.73 sqM) Glucose (74-99) mg/dL Plasma Lactic Acid Naresh (0.7-2.0) mmol/L Calcium (8.4-10.2) mg/dL Magnesium (1.6-2.3) mg/dL Total Bilirubin (0.2-1.3) mg/dL AST (14-36) U/L ALT (4-34) U/L Alkaline Phosphatase (38-126) U/L Troponin I (0.000-0.034) ng/mL NT-Pro-B Natriuret Pep pg/mL Total Protein (6.3-8.2) g/dL Albumin (3.5-5.0) g/dL Urine Color Yellow Urine Appearance Clear (Clear) Urine pH 6.0 (5.0-8.0) Ur Specific [place] 1.010 (1.001-1.035) Urine Protein Negative (Negative) Urine Glucose (UA) Negative (Negative) Urine Ketones 2+ H (Negative) Urine Blood Negative (Negative) Urine Nitrite Negative (Negative) Urine Bilirubin Negative (Negative) Urine Urobilinogen <0.2 (<2.0) mg/dL Ur Leukocyte Esterase Negative (Negative) 09/26/20 09/26/20 09/26/20 Range/Units 11:40 11:40 11:40 WBC (3.8-10.6) k/uL RBC (3.80-5.40) m/uL Hgb (11.4-16.0) gm/dL Hct (34.0-46.0) % MCV (80.0-100.0) fL MCH (25.0-35.0) pg MCHC (31.0-37.0) g/dL RDW (11.5-15.5) % Plt Count (150-450) k/uL Neutrophils % % Lymphocytes % % Monocytes % % Eosinophils % % Basophils % % Neutrophils # (1.3-7.7) k/uL Lymphocytes # (1.0-4.8) k/uL Monocytes # (0-1.0) k/uL Eosinophils # (0-0.7) k/uL Basophils # (0-0.2) k/uL PT (9.0-12.0) sec INR (<1.2) APTT (22.0-30.0) sec Sodium 134 L (137-145) mmol/L Potassium 4.5 (3.5-5.1) mmol/L Chloride 105 (98-107) mmol/L Carbon Dioxide 22 (22-30) mmol/L Anion Gap 7 mmol/L BUN 17 (7-17) mg/dL Creatinine 0.75 (0.52-1.04) mg/dL Est GFR (CKD-EPI)AfAm 85 (>60 ml/min/1.73 sqM) Est GFR (CKD-EPI)NonAf 74 (>60 ml/min/1.73 sqM) Glucose 89 (74-99) mg/dL Plasma Lactic Acid Naresh 1.1 (0.7-2.0) mmol/L Calcium 8.1 L (8.4-10.2) mg/dL Magnesium 1.9 (1.6-2.3) mg/dL Total Bilirubin 0.5 (0.2-1.3) mg/dL AST 36 (14-36) U/L ALT 13 (4-34) U/L Alkaline Phosphatase 65 (38-126) U/L Troponin I <0.012 (0.000-0.034) ng/mL NT-Pro-B Natriuret Pep pg/mL Total Protein 5.8 L (6.3-8.2) g/dL Albumin 3.2 L (3.5-5.0) g/dL Urine Color Urine Appearance (Clear) Urine pH (5.0-8.0) Ur Specific [place] (1.001-1.035) Urine Protein (Negative) Urine Glucose (UA) (Negative) Urine Ketones (Negative) Urine Blood (Negative) Urine Nitrite (Negative) Urine Bilirubin (Negative) Urine Urobilinogen (<2.0) mg/dL Ur Leukocyte Esterase (Negative) 09/26/20 Range/Units 11:40 WBC (3.8-10.6) k/uL RBC (3.80-5.40) m/uL Hgb (11.4-16.0) gm/dL Hct (34.0-46.0) % MCV (80.0-100.0) fL MCH (25.0-35.0) pg MCHC (31.0-37.0) g/dL RDW (11.5-15.5) % Plt Count (150-450) k/uL Neutrophils % % Lymphocytes % % Monocytes % % Eosinophils % % Basophils % % Neutrophils # (1.3-7.7) k/uL Lymphocytes # (1.0-4.8) k/uL Monocytes # (0-1.0) k/uL Eosinophils # (0-0.7) k/uL Basophils # (0-0.2) k/uL PT (9.0-12.0) sec INR (<1.2) APTT (22.0-30.0) sec Sodium (137-145) mmol/L Potassium (3.5-5.1) mmol/L Chloride (98-107) mmol/L Carbon Dioxide (22-30) mmol/L Anion Gap mmol/L BUN (7-17) mg/dL Creatinine (0.52-1.04) mg/dL Est GFR (CKD-EPI)AfAm (>60 ml/min/1.73 sqM) Est GFR (CKD-EPI)NonAf (>60 ml/min/1.73 sqM) Glucose (74-99) mg/dL Plasma Lactic Acid Naresh (0.7-2.0) mmol/L Calcium (8.4-10.2) mg/dL Magnesium (1.6-2.3) mg/dL Total Bilirubin (0.2-1.3) mg/dL AST (14-36) U/L ALT (4-34) U/L Alkaline Phosphatase (38-126) U/L Troponin I (0.000-0.034) ng/mL NT-Pro-B Natriuret Pep 197 pg/mL Total Protein (6.3-8.2) g/dL Albumin (3.5-5.0) g/dL Urine Color Urine Appearance (Clear) Urine pH (5.0-8.0) Ur Specific [place] (1.001-1.035) Urine Protein (Negative) Urine Glucose (UA) (Negative) Urine Ketones (Negative) Urine Blood (Negative) Urine Nitrite (Negative) Urine Bilirubin (Negative) Urine Urobilinogen (<2.0) mg/dL Ur Leukocyte Esterase (Negative) Disposition Clinical Impression: Fatigue, Mild dehydration Disposition: HOME SELF-CARE Condition: Stable Instructions (If sedation given, give patient instructions): Dehydration (ED) Additional Instructions: Please return to the Emergency Department if symptoms worsen or any other concerns. Is patient prescribed a controlled substance at d/c from ED?: No Referrals: Abdiel Francis MD [Primary Care Provider] - 1-2 days Time of Disposition: 13:40
[2020-09-26 11:54] LABS: Basophils % (A) 0 %; Eosinophils % (A) 0 %; HCT 39.3 % (34.0-46.0); HGB 12.7 gm/dL (11.4-16.0); Lymphocytes # (A) 0.9 k/uL (1.0-4.8); Lymphocytes % (A) 33 %; MCH 30.4 pg (25.0-35.0); MCHC 32.4 g/dL (31.0-37.0); MCV 93.7 fL (80.0-100.0); Mean Platelet Volume 7.5; Monocytes # (A) 0.2 k/uL (0-1.0); Monocytes % (A) 7 %; Neutrophils # (A) 1.6 k/uL (1.3-7.7); Neutrophils % (A) 57 %; Platelet Count 122 k/uL (150-450); RBC 4.19 m/uL (3.80-5.40); RDW 12.8 % (11.5-15.5); WBC 2.8 k/uL (3.8-10.6)
--- NOTE | 2020-09-26 11:57 | XR ---
EXAMINATION TYPE: XR chest 2V DATE OF EXAM: 09/26/2020 COMPARISON: Chest x-ray September 05, 2015 HISTORY: Weakness. TECHNIQUE: Frontal and lateral views of the chest are obtained. FINDINGS: There is chronic parenchymal changes greatest in the upper lungs without suspicious new fo earl air space opacity, pleural effusion, or pneumothorax seen. The cardiac silhouette size is stable and mildly enlarged. The osseous structures are demineralized. IMPRESSION: Chronic emphysematous change and mild cardiomegaly without acute pulmonary process.
[2020-09-26 12:04] LABS: Albumin 3.2 g/dL (3.5-5.0); Calcium 8.1 mg/dL (8.4-10.2); Magnesium 1.9 mg/dL (1.6-2.3); Total Bilirubin 0.5 mg/dL (0.2-1.3); Total Protein 5.8 g/dL (6.3-8.2)
[2020-09-26 12:07] LABS: Potassium 4.5 mmol/L (3.5-5.1)
[2020-09-26 12:20] LABS: INR 0.9 (<1.2); Prothrombin Time 9.4 sec (9.0-12.0)
[2020-09-26 12:22] LABS: Partial Thromboplastin Time 20.2 sec (22.0-30.0)
[2020-09-26 12:50] LABS: Appearance,Urine Clear (Clear); Color,Urine Yellow
[2020-09-26 12:51] LABS: Protein,Urine Negative (Negative)
[2020-09-26 12:53] LABS: Bilirubin,Urine Negative (Negative); Blood,Urine Negative (Negative); Glucose,Urine (UA) Negative (Negative); Ketones,Urine 2+ (Negative)
[2020-09-26 12:54] LABS: Leukocyte Esterase,Urine Negative (Negative); Nitrite,Urine Negative (Negative)
[2020-09-26 13:32] VITALS: BP 115/76; PULSE 57
[2020-09-26 14:26] LABS: Urobilinogen,Urine <2.0 mg/dL (<2.0)
== END 2020-09-26 14:04 | disposition home or self-care (01) ==
LOC: EC 10:50
DX: E86.0 Dehydration (principal); R53.83 Other fatigue; R53.1 Weakness; E07.9 Disorder of thyroid, unspecified; M19.90 Unspecified osteoarthritis, unspecified site; K21.9 Gastro-esophageal reflux disease without esophagitis; E78.5 Hyperlipidemia, unspecified; I10 Essential (primary) hypertension; Z79.82 Long term (current) use of aspirin; Z79.899 Other long term (current) drug therapy; Z79.02 Long term (current) use of antithrombotics/antiplatelets; Z79.890 Hormone replacement therapy; Z88.0 Allergy status to penicillin; Z88.2 Allergy status to sulfonamides; Z91.041 Radiographic dye allergy status; Z87.891 Personal history of nicotine dependence; Z86.718 Personal history of other venous thrombosis and embolism
CPT/HCPCS: 36415; 71046; 80053; 81003; 83605; 83735; 83880; 84484; 85025; 85610; 85730; 93005; 96360; 99285

== ENCOUNTER → 2023-08-13 | Outpatient (CLI) | payer MEDICARE, BC ==
[~2023-08-13] MED LIST: DENOSUMAB 60 MG/ML 1 ML SYRINGE SQ NR
[2023-08-13 12:51] VITALS: BP 91/60; PULSE 65; RESP 16; TEMP 98.1
== END ==
LOC: PROCWHC3 12:10
PROVIDERS: ATTEND Internal Medicine Geriatric Medicine
DX: M81.0 Age-related osteoporosis without current pathological fracture (principal)
CPT/HCPCS: 96372; J0897

== ENCOUNTER → 2024-04-13 | Outpatient (CLI) | payer MEDICARE, BC ==
[2024-04-13] MEDS: DENOSUMAB 60 MG/ML 1 ML SYRINGE SQ NR (14:17)
[2024-04-13 14:22] VITALS: BP 109/71; PULSE 73; RESP 16; TEMP 97.9
== END ==
LOC: PROCWHC3 14:07
PROVIDERS: ATTEND Internal Medicine Geriatric Medicine
DX: M81.0 Age-related osteoporosis without current pathological fracture (principal)
CPT/HCPCS: 96372; J0897

== ENCOUNTER → 2024-10-15 | Outpatient (CLI) | payer MEDICARE, BC ==
[2024-10-15 13:12] VITALS: BP 124/78; PULSE 64; RESP 16; TEMP 97.9
[2024-10-15] MEDS: DENOSUMAB 60 MG/ML 1 ML SYRINGE SQ ONE (13:15)
== END ==
LOC: PROCWHC3 13:02
PROVIDERS: ATTEND Internal Medicine Geriatric Medicine
DX: M81.0 Age-related osteoporosis without current pathological fracture (principal)
CPT/HCPCS: 96372; J0897

== ENCOUNTER 2025-03-04 19:23 | Emergency (ER) | payer MEDICARE, BC ==
[2025-03-04] MEDS: ONDANSETRON 4 MG/2 ML VIAL IVP STA (21:13)
[2025-03-04] MEDS: FAMOTIDINE 20 MG/2 ML VIAL IV STA (21:13)
[2025-03-04 21:19] VITALS: TEMP 98.9
[2025-03-04 21:22] LABS: Basophils # (A) 0.03 10*3/uL (0.00-0.10); Basophils % (A) 0.4 %; Eosinophils % (A) 1.3 %; HGB 11.6 g/dL (12.0-15.0); Lymphocytes # (A) 1.42 10*3/uL (0.90-5.00); Lymphocytes % (A) 18.8 %; MCH 31.6 pg (27.0-32.0); MCHC 33.1 g/dL (32.0-37.0); MCV 95.4 fL (80.0-97.0); Mean Platelet Volume 10.3 fL (9.5-12.2); Monocytes # (A) 0.75 10*3/uL (0.20-1.00); Monocytes % (A) 9.9 %; Neutrophils # (A) 5.22 10*3/uL (1.80-7.70); Neutrophils % (A) 69.3 %; Platelet Count 209 10*3/uL (140-440); RBC 3.67 10*6/uL (4.10-5.20); RDW 12.4 % (11.5-14.5); WBC 7.54 10*3/uL (4.50-10.00)
[2025-03-04 21:28] LABS: Appearance,Urine Cloudy (Clear); Bilirubin,Urine Negative (Negative); Blood,Urine Negative (Negative); Color,Urine Colorless; Glucose,Urine (UA) Negative (Negative); Ketones,Urine Negative (Negative); Leukocyte Esterase,Urine Moderate (Negative); Nitrite,Urine Negative (Negative); Protein,Urine Negative (Negative); RBC,Urine 5 /hpf (0-5); Specific Gravity,Urine 1.011 (1.001-1.035); Squamous Epithelial Cell,Urine <1 /hpf (0-4); Urobilinogen,Urine <2.0 mg/dL (<2.0); WBC,Urine 11 /hpf (0-5)
[2025-03-04 21:29] LABS: ALT 16 U/L (4-34); AST 35 U/L (14-36); African American GFR (CKD) >90 (>60 ml/min/1.73 sqM); Albumin 3.5 g/dL (3.5-5.0); Alkaline Phosphatase 80 U/L (38-126); Anion Gap 3 mmol/L; Blood Urea Nitrogen 23 mg/dL (7-17); Calcium 8.6 mg/dL (8.4-10.2); Carbon Dioxide 28 mmol/L (22-30); Chloride 105 mmol/L (98-107); Glucose 104 mg/dL (74-99); Lipase 115 U/L (23-300); Non-African American GFR(CKD) 80 (>60 ml/min/1.73 sqM); Potassium 4.3 mmol/L (3.5-5.1); Sodium 136 mmol/L (137-145); Total Bilirubin 0.4 mg/dL (0.2-1.3)
--- NOTE | 2025-03-04 22:12 | XR ---
EXAMINATION TYPE: XR KUB DATE OF EXAM: 03/04/2025 COMPARISON: CT abdomen and pelvis 09/18/2019 HISTORY: Abdominal pain TECHNIQUE: Single supine KUB image of the abdomen is obtained FINDINGS: Small bowel demonstrates no evidence for dilatation or air fluid levels. Moderate amount of stool is present throughout the colon. Most pronounced within the right colon. Cholecystectomy clips in the right upper quadrant. No convincing evidence for pneumoperitoneum. Pelvic phleboliths. The lung bases are clear. The osseous structures are intact. IMPRESSION: 1. Overall nonobstructive bowel gas pattern. 2. Moderate colonic stool burden. [facility], , 03/04/2025 10:10 PM
--- NOTE | 2025-03-04 22:33 | ED ---
Abdominal Pain HPI - General Chief Complaint: Abdominal Pain Stated Complaint: Chest pain Time Seen by Provider: 03/04/25 19:27 Source: EMS Mode of arrival: EMS Limitations: no limitations - History of Present Illness Initial Comments: 89-year-old female presents emergency department reporting left upper quadrant abdominal pain. States it started an hour after she took a Tylenol 3. States that she has advanced osteoarthritis and this was prescribed by her primary care doctor. She has never taken one before. Her daughter recommended that she take it as she was having significant joint pain. The patient immediately felt like she had to throw up. She did not take anything for pain before calling EMS. She denies chest pain or difficulty breathing. No history of coronary disease. No calf pain or swelling. No ripping or tearing sensation of her back. No numbness, tingling or weakness in her extremities. No other alleviating, precipitating modifying factors - Related Data Home Medications Medication Instructions Recorded Confirmed Aspirin 81 mg PO HS 09/05/15 10/15/24 Atorvastatin [Lipitor] 20 mg PO DAILY 09/05/15 10/15/24 Ezetimibe [Zetia] 10 mg PO DAILY 09/05/15 10/15/24 carvediloL [Coreg] 3.125 mg PO BID 09/05/15 10/15/24 Omeprazole [PriLOSEC] 20 mg PO DAILY 09/26/20 10/15/24 Ascorbic Acid [Vitamin C] 500 mg PO DAILY 08/13/23 10/15/24 Denosumab [Prolia] 60 mg SQ DIRECTED 08/13/23 10/15/24 Levothyroxine Sodium 150 mcg PO DIRECTED 08/13/23 10/15/24 Ubidecarenone [Coenzyme Q10] 200 mg PO DAILY 08/13/23 10/15/24 Allergies Allergy/AdvReac Type Severity Reaction Status Date / Time Penicillins Allergy Severe Anaphylaxis Verified 10/15/24 13:12 Iodinated Contrast Media Allergy Anaphylaxis Verified 10/15/24 13:12 Sulfa (Sulfonamide Allergy Anaphylaxis Verified 10/15/24 13:12 Antibiotics) morphine AdvReac Chest Pain Verified 10/15/24 13:12 heart cath dye Allergy Anaphylaxis Uncoded 10/15/24 13:12 Review of Systems ROS Statement: Those systems with pertinent positive or pertinent negative responses have been documented in the HPI. ROS Other: All systems not noted in ROS Statement are negative. 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, c ardiac stent 2012, x-smoker, cholecystitis, diverticulitis, recent flare August 29, pt on 7 more doses of po cipro History of Any Multi-Drug Resistant Organisms: ESBL Date of last positivie culture/infection: 11/26/19 E.coli ESBL MDRO Source:: Urine Past Surgical History: Cholecystectomy, Heart Catheterization With Stent, Hysterectomy Additional Past Surgical History / Comment(s): surgery for perforated ulcer 10 yrs ago Past Anesthesia/Blood Transfusion Reactions: No Reported Reaction Date of Last Stent Placement:: 2012 Past Psychological History: No Psychological Hx Reported Smoking Status: Former smoker - Past Family History Mother Family Medical History: Chest Pain / Angina, Myocardial Infarction ([place]), Thyroid Disorder Father Family Medical History: Cancer (Lung cancer), Thyroid Disorder Brother(s) Family Medical History: Thyroid Disorder Daughter(s) Family Medical History: Cancer (Uterine cancer), Thyroid Disorder Son(s) Family Medical History: No Reported History General Exam Limitations: no limitations General appearance: alert, in no apparent distress Head exam: Present: atraumatic, normocephalic, normal inspection Eye exam: Present: normal appearance, PERRL, EOMI. Absent: scleral icterus, conjunctival injection, periorbital swelling ENT exam: Present: normal exam, mucous membranes moist Neck exam: Present: normal inspection. Absent: tenderness, meningismus, lymphadenopathy Respiratory exam: Present: normal lung sounds bilaterally. Absent: respiratory distress, wheezes, rales, rhonchi, stridor Cardiovascular Exam: Present: regular rate, normal rhythm, normal heart sounds. Absent: systolic murmur, diastolic murmur, rubs, gallop, clicks GI/Abdominal exam: Present: soft, normal bowel sounds. Absent: distended, tenderness, guarding, rebound, rigid Extremities exam: Present: normal inspection, full ROM, normal capillary refill. Absent: tenderness, pedal edema, joint swelling, calf tenderness Back exam: Present: normal inspection Neurological exam: Present: alert, oriented X3, CN II-XII intact Psychiatric exam: Present: normal affect, normal mood Skin exam: Present: warm, dry, intact, normal color. Absent: rash Course Vital Signs 03/04/25 03/04/25 03/04/25 19:27 21:15 23:36 Temperature 97.8 F 98.9 F Pulse Rate 60 56 L 87 Respiratory 19 19 20 Rate Blood Pressure 161/87 152/78 152/72 O2 Sat by Pulse 96 96 96 Oximetry Medical Decision Making - Medical Decision Making Was pt. sent in by a medical professional or institution (, PA, LEAN FACILITATOR, urgent care, hospital, or senior care...) When possible be specific @ -No Did you speak to anyone other than the patient for history (EMS, parent, family, police, friend...)? What history was obtained from this source @ -Spoke with EMS for history Did you review nursing and triage notes (agree or disagree)? Why? @ -I reviewed and agree with nursing and triage notes Were old charts reviewed (outside hosp., previous admission, EMS record, old EKG, old radiological studies, urgent care reports/EKG's, senior care records)? Report findings @ -No old charts were reviewed Differential Diagnosis (chest pain, altered mental status, abdominal pain women, abdominal pain men, vaginal bleeding, weakness, fever, dyspnea, syncope, headache, dizziness, GI bleed, back pain, seizure, CVA, palpatations, mental health, musculoskeletal)? @ -Differential Abdominal Pain Women: Appendicitis, Cholecystitis, diverticulosis, ischemic bowel, pancreatitis, hepatitis, UTI, gastroenteritis, AAA, incarcerated hernia, bowel obstruction, constipation, inflammatory bowel, hepatitis, peptic ulcer disease, splenic infarction, perforated viscus, vulvitis, ovarian torsion, PID, kidney stone, placenta abruption, this is not meant to be an all-inclusive list EKG interpreted by me (3pts min.). @ -Yes and demonstrates sinus bradycardia with a rate of 58. ND interval 153. QRS 97. QTc of 427. No acute ST segment elevations or depressions X-rays interpreted by me (1pt min.). @ -Gas which demonstrates no acute findings CT interpreted by me (1pt min.). @ -None done U/S interpreted by me (1pt. min.). @ -None done What testing was considered but not performed or refused? (CT, X-rays, U/S, labs)? Why? @ -None What meds were considered but not given or refused? Why? @ -None Did you discuss the management of the patient with other professionals (professionals i.e. , PA, LEAN FACILITATOR, lab, RT, psych nurse, geriatric social work professor, doll wigs hackler, teacher, senior grants officer, child welfare caseworker)? Give summary @ -No Was smoking cessation discussed for >3mins.? @ -No Was critical care preformed (if so, how long)? @ -No Were there social determinants of health that impacted care today? How? (Homelessness, low income, unemployed, alcoholism, drug addiction, transportation, low edu. Level, literacy, decrease access to med. care, half-way, rehab)? @ -No Was there de-escalation of care discussed even if they declined (Discuss DNR or withdrawal of care, Hospice)? DNR status @ -No What co-morbidities impacted this encounter? (DM, HTN, Smoking, COPD, CAD, Cancer, CVA, ARF, Chemo, Hep., AIDS, mental health diagnosis, sleep apnea, morbid obesity)? @ -None Was patient admitted / discharged? Hospital course, mention meds given and route, prescriptions, significant lab abnormalities, going to OR and other pertinent info. @ -Upon arrival patient seen and evaluated in bed 16. Thorough history and physical exam was performed. IV access was established. Laboratory studies are conducted. Chest x-ray was performed. Patient was given nausea medications. She was reevaluated and reports to improvement in her symptoms. Do feel that the patient's symptoms are most consistent with adverse effect of Tylenol 3. Recommended that patient discontinue use of this. She will follow-up with her primary care doctor to talk about different medication options and return for any new or worsening symptoms. Patient was agreeable with plan she was disc harged in stable condition Undiagnosed new problem with uncertain prognosis? @ -No Drug Therapy requiring intensive monitoring for toxicity (Heparin, Nitro, Insulin, Cardizem)? @ -No Were any procedures done? @ -No Diagnosis/symptom? @ -Acute left upper quadrant abdominal pain, suspected adverse reaction to Tylenol 3 Acute, or Chronic, or Acute on Chronic? @ -Acute Uncomplicated (without systemic symptoms) or Complicated (systemic symptoms)? @ -Complicated Side effects of treatment? @ -No Exacerbation, Progression, or Severe Exacerbation? @ -No Poses a threat to life or bodily function? How? (Chest pain, [place], [place], pneumonia, PE, COPD, DKA, ARF, appy, cholecystitis, CVA, Diverticulitis, Homicidal, Suicidal, threat to staff... and all critical care pts) @ -No - Lab Data Result diagrams: 03/04/25 20:33 03/04/25 20:33 Lab Results 03/04/25 03/04/25 03/04/25 Range/Units 20:33 20:33 20:33 WBC 7.54 (4.50-10.00) 10*3/uL RBC 3.67 L (4.10-5.20) 10*6/uL Hgb 11.6 L (12.0-15.0) g/dL Hct 35.0 L (37.2-46.3) % MCV 95.4 (80.0-97.0) fL MCH 31.6 (27.0-32.0) pg MCHC 33.1 (32.0-37.0) g/dL Plt Count 209 (140-440) 10*3/uL MPV 10.3 (9.5-12.2) fL Immature Gran % (Auto) 0.3 % Neutrophils % 69.3 % Lymphocytes % 18.8 % Monocytes % 9.9 % Eosinophils % 1.3 % Basophils % 0.4 % Immature Gran # 0.02 (0.00-0.04) 10*3/uL Neutrophils # 5.22 (1.80-7.70) 10*3/uL Lymphocytes # 1.42 (0.90-5.00) 10*3/uL Monocytes # 0.75 (0.20-1.00) 10*3/uL Eosinophils # 0.10 (0.04-0.35) 10*3/uL Basophils # 0.03 (0.00-0.10) 10*3/uL Sodium 136 L (137-145) mmol/L Potassium 4.3 (3.5-5.1) mmol/L Chloride 105 (98-107) mmol/L Carbon Dioxide 28 (22-30) mmol/L Anion Gap 3 mmol/L BUN 23 H (7-17) mg/dL Creatinine 0.65 (0.52-1.04) mg/dL Est GFR (CKD-EPI)AfAm >90 (>60 ml/min/1.73 sqM) Est GFR (CKD-EPI)NonAf 80 (>60 ml/min/1.73 sqM) Glucose 104 H (74-99) mg/dL Plasma Lactic Acid Naresh (0.7-2.0) mmol/L Calcium 8.6 (8.4-10.2) mg/dL Total Bilirubin 0.4 (0.2-1.3) mg/dL AST 35 (14-36) U/L ALT 16 (4-34) U/L Alkaline Phosphatase 80 (38-126) U/L Troponin I (0.000-0.034) ng/mL Total Protein 6.0 L (6.3-8.2) g/dL Albumin 3.5 (3.5-5.0) g/dL Lipase 115 (23-300) U/L Urine Color Colorless Urine Appearance Cloudy H (Clear) Urine pH 8.0 (5.0-8.0) Ur Specific Doon 1.011 (1.001-1.035) Urine Protein Negative (Negative) Urine Glucose (UA) Negative (Negative) Urine Ketones Negative (Negative) Urine Blood Negative (Negative) Urine Nitrite Negative (Negative) Urine Bilirubin Negative (Negative) Urine Urobilinogen <2.0 (<2.0) mg/dL Ur Leukocyte Esterase Moderate H (Negative) Urine RBC 5 (0-5) /hpf Urine WBC 11 H (0-5) /hpf Ur Squamous Epith Cells <1 (0-4) /hpf 03/04/25 03/04/25 Range/Units 20:33 20:33 WBC (4.50-10.00) 10*3/uL RBC (4.10-5.20) 10*6/uL Hgb (12.0-15.0) g/dL Hct (37.2-46.3) % MCV (80.0-97.0) fL MCH (27.0-32.0) pg MCHC (32.0-37.0) g/dL Plt Count (140-440) 10*3/uL MPV (9.5-12.2) fL Immature Gran % (Auto) % Neutrophils % % Lymphocytes % % Monocytes % % Eosinophils % % Basophils % % Immature Gran # (0.00-0.04) 10*3/uL Neutrophils # (1.80-7.70) 10*3/uL Lymphocytes # (0.90-5.00) 10*3/uL Monocytes # (0.20-1.00) 10*3/uL Eosinophils # (0.04-0.35) 10*3/uL Basophils # (0.00-0.10) 10*3/uL Sodium (137-145) mmol/L Potassium (3.5-5.1) mmol/L Chloride (98-107) mmol/L Carbon Dioxide (22-30) mmol/L Anion Gap mmol/L BUN (7-17) mg/dL Creatinine (0.52-1.04) mg/dL Est GFR (CKD-EPI)AfAm (>60 ml/min/1.73 sqM) Est GFR (CKD-EPI)NonAf (>60 ml/min/1.73 sqM) Glucose (74-99) mg/dL Plasma Lactic Acid Naresh 0.8 (0.7-2.0) mmol/L Calcium (8.4-10.2) mg/dL Total Bilirubin (0.2-1.3) mg/dL AST (14-36) U/L ALT (4-34) U/L Alkaline Phosphatase (38-126) U/L Troponin I <0.012 (0.000-0.034) ng/mL Total Protein (6.3-8.2) g/dL Albumin (3.5-5.0) g/dL Lipase (23-300) U/L Urine Color Urine Appearance (Clear) Urine pH (5.0-8.0) Ur Specific Doon (1.001-1.035) Urine Protein (Negative) Urine Glucose (UA) (Negative) Urine Ketones (Negative) Urine Blood (Negative) Urine Nitrite (Negative) Urine Bilirubin (Negative) Urine Urobilinogen (<2.0) mg/dL Ur Leukocyte Esterase (Negative) Urine RBC (0-5) /hpf Urine WBC (0-5) /hpf Ur Squamous Epith Cells (0-4) /hpf Disposition Clinical Impression: Epigastric pain Disposition: HOME SELF-CARE Condition: Stable Instructions (If sedation given, give patient instructions): Epigastric Pain (ED) Additional Instructions: Please follow-up with your primary care doctor. Return to the emergency department should your pain continue into the day tomorrow. Speak with them about possible different medication choices for your arthritis. Is patient prescribed a controlled substance at d/c from ED?: No Referrals: None,Stated [Primary Care Provider] - 1-2 days Time of Disposition: 22:33
[2025-03-04 23:45] VITALS: BP 152/72; PULSE 87; RESP 20
== END 2025-03-04 23:53 | disposition home or self-care (01) ==
LOC: EC 19:23
DX: R10.13 Epigastric pain (principal); Z87.891 Personal history of nicotine dependence; Z88.2 Allergy status to sulfonamides; Z88.0 Allergy status to penicillin; Z88.5 Allergy status to narcotic agent; Z91.041 Radiographic dye allergy status; Z88.8 Allergy status to other drugs, medicaments and biological substances
CPT/HCPCS: 36415; 93005; 80053; 83605; 83690; 84484; 85025; 81001; 74018; 99285; 96374; 96375; J2405; J3490